=== PATIENT | female | born 1950 | race Caucasian/White ===

== ENCOUNTER → 2017-10-11 | Outpatient (CLI) | payer MEDICARE, BC ==
[~2017-10-11] MED LIST: ALLEGRA180 MG PO; ASPIR-LOW81 MG PO; CALCIUM 500500 MG PO; CENTURY SENIOR PO; CEPHALEXIN500 M1 PO; COSAMIN DS PO; NEXIUM 40MG40 MG PO
== END ==
LOC: MC.RAD 13:57
DX: Z12.31 Encounter for screening mammogram for malignant neoplasm of breast (principal); N63.20 Unspecified lump in the left breast, unspecified quadrant

== ENCOUNTER → 2017-10-21 | Outpatient (CLI) | payer MEDICARE, BC | LOC: MC.RAD 13:48 | DX: N63.20 Unspecified lump in the left breast, unspecified quadrant (principal) ==

== ENCOUNTER → 2018-05-16 | Outpatient (CLI) | payer MEDICARE, BC | LOC: MC.RAD 05-09 07:30 | DX: N63.20 Unspecified lump in the left breast, unspecified quadrant (principal); Z98.82 Breast implant status | CPT/HCPCS: G0279 ==

== ENCOUNTER 2019-02-10 14:22 | Outpatient (CLI) | payer MEDICARE, BC ==
[~2019-02-10] VITALS: Ht 152.4 cm; Wt 68.0 kg
[2019-02-10 15:39] VITALS: BP 139/88; PULSE 83; TEMP 98.1
== END 2019-02-10 15:39 | disposition home or self-care (01) ==
LOC: EUO 14:22
DX: M81.0 Age-related osteoporosis without current pathological fracture (principal)
CPT/HCPCS: J0897

== ENCOUNTER 2019-08-15 14:51 | Outpatient (CLI) | payer MEDICARE, BC ==
[2019-08-15 15:16] VITALS: BP 110/83; PULSE 68; TEMP 98.3
== END 2019-08-15 16:50 | disposition home or self-care (01) ==
LOC: EUO 14:51
DX: M81.0 Age-related osteoporosis without current pathological fracture (principal)
CPT/HCPCS: J0897

== ENCOUNTER → 2019-08-31 | Outpatient (CLI) | payer MEDICARE, BC | LOC: MC.RAD 12:40 | DX: Z12.31 Encounter for screening mammogram for malignant neoplasm of breast (principal); N63.20 Unspecified lump in the left breast, unspecified quadrant ==

== ENCOUNTER 2020-03-14 14:32 | Outpatient (CLI) | payer MEDICARE, BC ==
[~2020-03-14] VITALS: Ht 152.4 cm; Wt 70.9 kg
[2020-03-14 15:14] VITALS: BP 126/80; PULSE 78; TEMP 98.5
[2020-03-14] MEDS ORDERED: ZOLOFT 25MG25 MG PO (15:46)
[2020-03-14] MEDS ORDERED: PROLIA60 MG/ML SQ (15:47)
[2020-03-14] MEDS ORDERED: CITRUCEL WITH500 MG PO (15:49)
[2020-03-14] MEDS ORDERED: ICAPS TABLET1 EACH PO (15:49)
[2020-03-14] MEDS ORDERED: CALTRATE-600 W600 MG PO (15:50)
== END 2020-03-14 17:00 | disposition home or self-care (01) ==
LOC: EUO 14:32
DX: M81.0 Age-related osteoporosis without current pathological fracture (principal)
CPT/HCPCS: J0897

== ENCOUNTER 2020-09-18 16:03 | Outpatient (CLI) | payer MEDICARE, BC ==
[~2020-09-18] VITALS: Ht 152.4 cm; Wt 71.1 kg
[~2020-09-18 16:03] MED LIST changes: +CALTRATE-600 W600 MG PO; +CITRUCEL WITH500 MG PO; +ICAPS TABLET1 EACH PO; +PROLIA60 MG/ML SQ; +ZOLOFT 25MG25 MG PO
[2020-09-18 16:15] VITALS: BP 119/78; PULSE 62; TEMP 98.6
== END 2020-09-18 16:35 | disposition home or self-care (01) ==
LOC: EUO 16:03
DX: M81.0 Age-related osteoporosis without current pathological fracture (principal)
CPT/HCPCS: J0897

== ENCOUNTER → 2021-09-23 | Outpatient (CLI) | payer MEDICARE, BC | LOC: MC.RAD 10:33 | DX: Z12.31 Encounter for screening mammogram for malignant neoplasm of breast (principal) ==

== ENCOUNTER 2021-10-02 13:55 | Outpatient (CLI) | payer MEDICARE, BC ==
[~2021-10-02] VITALS: Ht 152.4 cm; Wt 72.0 kg
[~2021-10-02 13:55] MED LIST changes: +COSAMIN DS 4001 CA1 PO; -COSAMIN DS PO
[2021-10-02 14:17] VITALS: BP 138/83; PULSE 74; TEMP 98.4
== END 2021-10-02 14:46 | disposition home or self-care (01) ==
LOC: EUO 13:55
DX: M81.0 Age-related osteoporosis without current pathological fracture (principal)
CPT/HCPCS: J0897

== ENCOUNTER 2022-04-06 15:53 | Outpatient (CLI) | payer MEDICARE, BC ==
[~2022-04-06] VITALS: Ht 152.4 cm; Wt 69.9 kg
[2022-04-06 16:23] VITALS: BP 136/65; PULSE 76; TEMP 98.7
== END 2022-04-06 16:21 | disposition home or self-care (01) ==
LOC: EUO 15:53
DX: M81.0 Age-related osteoporosis without current pathological fracture (principal)
CPT/HCPCS: J0897

== ENCOUNTER → 2022-10-20 | Outpatient (CLI) | payer MEDICARE, BC | LOC: MC.RAD 11:16 | DX: Z12.31 Encounter for screening mammogram for malignant neoplasm of breast (principal) ==